=== PATIENT | female | born 1975 | race Caucasian/White ===

== ENCOUNTER 2019-06-27 15:09 | Emergency (ER) | payer OTHER ==
[~2019-06-27] VITALS: Ht 160 cm; Wt 95.5 kg
[2019-06-27 15:11] VITALS: TEMP 97.3
[2019-06-27] MEDS ORDERED: CYMBALTA 30MG30 MG PO (15:20)
[2019-06-27] MEDS ORDERED: MAXALT5 MG PO (15:21)
[2019-06-27 15:29] LABS: BASO % 0.2 % (0.0-2.0); EOS # 0.1 (0.0-0.7); EOS % 0.6 % (0-4.0); GRAN # 5.7 (1.4-6.5); GRAN % 67.5 % (42.2-75.2); HEMATOCRIT 38.2 % (37.0-47.0); LYMPH # 1.8 (1.2-3.4); LYMPH % 21.7 % (20.0-51.0); MEAN CELL VOLUME 94 fl (80.0-100.0); MEAN CORPUSCULAR HEMOGLOBIN 32 pg (27.0-31.0); MEAN CORPUSCULAR HGB CONC 34 g/dl (33.0-37.0); MEAN PLATELET VOLUME 10.2 fl (7.4-10.4); MONO # 0.8 (0.1-0.6); MONO % 9.6 % (1.7-9.3); PLATELET COUNT 191 K/mm3 (130-400); RED BLOOD COUNT 4.06 M/mm3 (4.10-5.30); REDCELL DISTRIBUTION WIDTH-CV 12.1 % (11.5-14.5)
[2019-06-27 16:01] LABS: ALBUMIN 4.1 gm/dL (3.5-5.0); BILIRUBIN,TOTAL 0.4 mg/dL (0.0-1.0); CALCIUM 8.9 mg/dL (8.4-10.2); CREATININE, serum 0.86 (0.52-1.25); POTASSIUM 4.1 mmol/L (3.4-5.0); TOTAL PROTEIN 7.2 gm/dL (6.4-8.2)
[2019-06-27 16:40] VITALS: BP 118/61; PULSE 77
== END 2019-06-27 17:30 | disposition home or self-care (01) ==
LOC: COL.ER 15:09
PROVIDERS: Emergency Medicine
DX: S09.90XA Unspecified injury of head, initial encounter (principal); S01.81XA Laceration without foreign body of other part of head, initial encounter; R55 Syncope and collapse; G43.909 Migraine, unspecified, not intractable, without status migrainosus; Z98.890 Other specified postprocedural states; W18.39XA Other fall on same level, initial encounter; Y93.61 Activity, american tackle football
CPT/HCPCS: J7030